=== PATIENT | female | born 1980 | race Caucasian/White ===

== ENCOUNTER 2022-08-13 08:43 | Emergency (ER) | payer BC ==
--- OUTSIDE RECORDS SUMMARY | 2022-08-13 08:47 | XMS REPORT | Continuity of Care Document ---
:1980 Author Organization [facility] t Address [address] [place] [address] [place] [id number] Care Team Providers Name Role Phone Ruth Chow Primary Care Physician RUTH CHAPIN Attending Clinician Unavailable Ruth Chow Attending Clinician Doctor Unassigned, [place] Attending Clinician Unavailable SHIMON_Magdalene Attending Clinician Unavailable BRAVO_Cherelle Attending Clinician Unavailable Dimitri Gar MD Attending Clinician SAMY PONCE Attending Clinician Unavailable Provider, [facility] Attending Clinician Unavailable Samy Ponce PA-C Attending Clinician BRUNA WHYTE Attending Clinician Unavailable Bruna Mann Attending Clinician Unknown, Attending Attending Clinician Unavailable Maura Burns Attending Clinician MAURA MCKINNON Attending Clinician Unavailable Suze Marin RN Attending Clinician Unavailable Nurse, [facility] Attending Clinician Unavailable Provider, [facility] Attending Clinician Unavailable DIMITRI GAR Attending Clinician Unavailable GARY QUINTANA Attending Clinician Unavailable BLAIR FOLEY Attending Clinician Unavailable [email or web address] Admitting Clinician Unavailable [email or web address] Admitting Clinician Unavailable Payers Payer Name Policy Type Policy Number Effective Date Expiration Date S iveth [employer] [place] [id number] 2020 00:00:00 [place] [id number] 2020 00:00:00 Problems Condition Condition Condition Status Onset Resolution Last Treating Co mments Source Name Details Category Date Date Treatment Clinician Date Atopic Atopic Disease Active 2019-03 Univers dermatitis dermatitis 0-11 it y of 00:00: [place] 00 Medical Branch Tobacco Tobacco Problem Active [facility] user User 10-13 Medical 00:00: 00 Deliveries Deliveries Problem Active [facility] by by 10-13 Medical 00:00: 00 History of History of Problem Active [facility] endometrio Endometrio 10-13 Me dical sis sis 00:00: 00 Microscopi Microscopi Disease Active U nivers c c 6-20 [place] of [place] [facility] Tubal Tubal Disease Active Univers ligation ligation 5-26 ity of status status 00:00: [place] [facility] Previous Previous Disease Active Unive rs 5-24 ity of section section 00:00: [place] 00 [facility] Branch Hemochroma Hemochroma Disease Active Overview : Univers tosis tosis Formattin ity of carrier carrier g of this [place] note Medical might be Branch different from the original. 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 ity of [facility] Varicose Varicose Disease Active Unive rs veins of veins of [place]y of both [place] extremitie extremitie Me dical s s Branch Allergies, Adverse Reactions, Alerts Allergy Allergy Status Severity Reaction(s) Onset Inactive Treating Comm ents Source Name Type Date Date Clinician No Known DA Active [facility] [place] NO KNOWN Drug Active Univers ALLERGIE Class ity of S [facility] Social History Social Habit Start Date Stop Date Quantity Comments Source History [facility] University o f Alcohol Frequency [place] [facility] History [facility] o f Alcohol Std Drinks [facility] History [facility] o f Alcohol Binge [facility] Branch Alcohol intake 2022-03-29 2022-03-29 Ex-drinker University of 00:00:00 00:00:00 (finding) [facility] Exposure to 2022-03-16 2022-03-26 Not sure University of SARS-CoV-2 (event) 00:00:00 15:03:00 [facility] Cigarettes smoked 2022-03-10 2022-03-10 Univers ity of current (pack per 00:00:00 00:00:00 [facility] ed) - Reported Branch Cigarette 2022-03-10 2022-03-10 University of pack-years 00:00:00 00:00:00 [facility] Tobacco use and 2022-03-10 2022-03-10 Smokeless Universit y of exposure 00:00:00 00:00:00 tobacco non-user [facility] [place] [facility] Tobacco Comment 2022-03-10 2022-03-10 vapes Universit y of 00:00:00 00:00:00 [facility] History of tobacco 2018-12-21 Cigarette Smoker University of use 00:00:00 [facility] Alcohol Comment 2017-06-21 2017-06-21 3 times per Universi ty of 00:00:00 00:00:00 month [facility] Sex Ass[birth year] At [birth year] Universit y of 00:00:00 00:00:00 [facility] Smoking Status Start Date Stop Date Source Ex-smoker 2022-03-10 00:00:00 2022-03-10 00:00:00 Universi ty of [facility] Medications Ordered Filled Start Stop Current Ordering Indication Dosage Frequency Signature Comments Components Source Medication Medication Date Date Medication? Clinician (SIG) Name Name vortioxetin Yes Trintellix Univers e 1-13 10 mg ity of (TR[place] 15:09: tablet [place] 10 mg Tab 52 Medical Branch vortioxetin Yes Trintellix Univers e 1-13 10 mg ity of (TR[place] 15:09: tablet [place] 10 mg Tab 52 [facility] Branch azithromyci Yes [id number] Take 500 Univers n 250 mg 1-13 mg PO day ity of tablet 00:00: 1, then [place] 00 250 mg PO Medical days 2 to Branch 5 azithromyci 3-0 Yes [id number] Take 500 Univers n 250 mg 1-13 mg PO day ity of tablet 00:00: 1, then [place] 00 250 mg PO Medical days 2 to Branch 5 benzonatate 2021-03 Yes [id number] 100mg Take 1 Univers (TESSALON 2-28 capsule by ity of PERLES) 100 00:00: mouth [place] mg capsule 00 every 8 Medica l (eight) Branch hours as needed for Cough. albuterol 2021-03 Yes [id number] 2{puff} Inhale 2 Univers 90 2-28 Puffs ity of mcg/actuati 00:00: every 6 Andrey as on inhaler 00 (six) Medical hours as Branch needed for Wheezing. methylPREDN 2021-03 Yes [id number] Take by Univers ISolone 2-28 mouth ity of (MEDROL, 00:00: SEE-INSTRU [place] as DORETHA,) 4 mg 00 CTIONS. Medica l tablets follow Branch package directions benzonatate 2021-03 Yes [id number] 100mg Take 1 Univers (TESSALON 2-28 capsule by ity of PERLES) 100 00:00: mouth [place] mg capsule 00 every 8 Medica l (eight) Branch hours as needed for Cough. albuterol 2021-03 Yes [id number] 2{puff} Inhale 2 Univers 90 2-28 Puffs ity of mcg/actuati 00:00: every 6 Andrey as on inhaler 00 (six) Medical hours as Branch needed for Wheezing. methylPREDN 2021-03 Yes [id number] Take by Univers ISolone 2-28 mouth ity of (MEDROL, 00:00: SEE-INSTRU [place] DORETHA,) 4 mg 00 CTIONS. Medica l tablets follow Branch package directions benzonatate 2021-03 Yes [id number] 100mg Take 1 Univers (TESSALON 2-28 capsule by ity of PERLES) 100 00:00: mouth [place] mg capsule 00 every 8 Medica l (eight) Branch hours as needed for Cough. albuterol 2021-03 Yes [id number] 2{puff} Inhale 2 Univers 90 2-28 Puffs ity of mcg/actuati 00:00: every 6 [place] as on inhaler 00 (six) Medical hours as Branch needed for Wheezing. methylPREDN 2021-03 Yes [id number] Take by Univers ISolone 2-28 mouth ity of (MEDROL, 00:00: SEE-INSTRU [place] DORETHA,) 4 mg 00 CTIONS. Medica l tablets follow Branch package directions benzonatate 2021-03 Yes [id number] 100mg Take 1 Univers (TESSALON 2-28 capsule by ity of PERLES) 100 00:00: mouth [place] mg capsule 00 every 8 Medica l (eight) Branch hours as needed for Cough. albuterol 2021-03 Yes [id number] 2{puff} Inhale 2 Univers 90 2-28 Puffs ity of mcg/actuati 00:00: every 6 [place] as on inhaler 00 (six) Medical hours as Branch needed for Wheezing. methylPREDN 2021-03 Yes [id number] Take by Univers ISolone 2-28 mouth ity of (MEDROL, 00:00: SEE-INSTRU [place] DORETHA,) 4 mg 00 CTIONS. Medica l tablets follow Branch package directions benzonatate 2021-03 Yes [id number] 100mg Take 1 Univers (TESSALON 2-28 capsule by ity of PERLES) 100 00:00: mouth [place] mg capsule 00 every 8 Medica l (eight) Branch hours as needed for Cough. albuterol 2021-03 Yes [id number] 2{puff} Inhale 2 Univers 90 2-28 Puffs ity of mcg/actuati 00:00: every 6 [place] as on inhaler 00 (six) Medical hours as Branch needed for Wheezing. methylPREDN 2021-03 Yes [id number] Take by Univers ISolone 2-28 mouth ity of (MEDROL, 00:00: SEE-INSTRU [place] DORETHA,) 4 mg 00 CTIONS. Medica l tablets follow Branch package directions SERTraline 2021-03 Yes Univers 100 mg 2-27 ity of tablet 00:00: [place] 00 Medical Branch varenicline 2021-03 Yes 10mg Take 10 mg Univers 0.5 mg 2-27 by mouth. ity of (11)- 1 mg 00:00: [place] (42) tablet 00 Medical Branch SERTraline 2021-03 Yes Univers 100 mg 2-27 ity of tablet 00:00: [place] 00 Medical Branch varenicline 2021-03 Yes 10mg Take 10 mg Univers 0.5 mg 2-27 by mouth. ity of (11)- 1 mg 00:00: [place] (42) tablet 00 Medical Branch diazePAM 5 2021-03 Yes Univers mg tablet 2-06 ity of 00:00: [place] 00 Medical Branch diazePAM 5 2021-03 Yes Univers mg tablet 2-06 ity of 00:00: [place] 00 Medical Branch tretinoin 2021-03 Yes Univers 0.05 % 1-22 ity of cream 00:00: [place] [facility] tretinoin 2021-03 Yes Univers 0.05 % 1-22 ity of cream 00:00: [place] [facility] triamcinolo 2020-03- No [id number] 40mg [facility] 04-15 ity of acetonide 18:45: 17:41 [place] (KENALOG) 00 :00 Medical injection Branch 40 mg triamcinolo 2020-03- No [id number] 40mg 40 mg, [facility] 04-15 Intramuscu ity of acetonide 18:45: 17:41 [place], ONCE, [place] (KENALOG) 00 :00 1 dose, On Medi oly injection Alondra Branch 40 mg 02/12/21 at 1245, Routine triamcinolo 2020-03 Yes Apply to [facility] 04-15 area(s) 2 ity of acetonide 00:00: (two) [place] 0.1 % cream 00 times Medical daily. Branch methylPREDN 2020-03 Yes Take by [facility] 04-15 mouth ity of (MEDROL, 00:00: SEE-INSTRU [place] DORETHA,) 4 mg 00 CTIONS. Medica l tablets follow Branch package directions triamcinolo 2020-03 Yes Apply to [facility] 04-15 area(s) 2 ity of acetonide 00:00: (two) [place] 0.1 % cream 00 times Medical daily. Branch methylPREDN 2020-03 Yes Take by [facility] 04-15 mouth ity of (MEDROL, 00:00: SEE-INSTRU [place] DORETHA,) 4 mg 00 CTIONS. Medica l tablets follow Branch package directions triamcinolo 2020-03 Yes Apply to [facility] area(s) 2 ity of acetonide 00:00: (two) [place] 0.1 % cream 00 times Medical daily. Branch methylPREDN 2020-03 Yes Take by [facility] 04-15 mouth ity of (MEDROL, 00:00: SEE-INSTRU [place] DORETHA,) 4 mg 00 CTIONS. Medica l tablets follow Branch package directions triamcinolo 2020-03 Yes Apply to [facility] area(s) 2 ity of acetonide 00:00: (two) [place] 0.1 % cream 00 times Medical daily. Branch methylPREDN 2020-03 Yes Take by [facility] 04-15 mouth ity of (MEDROL, 00:00: SEE-INSTRU [place] DORETHA,) 4 mg 00 CTIONS. Medica l tablets follow Branch package directions triamcinolo 2020-03 Yes Apply to [place] [address] area(s) 2 ity of acetonide 00:00: (two) [place] 0.1 % cream 00 times Medical daily. Branch triamcinolo 2020-03 Yes Apply to [facility] area(s) 2 ity of acetonide 00:00: (two) [place] 0.1 % cream 00 times Medical daily. Branch triamcinolo 2020-03 Yes Apply to [place] [address] area(s) 2 ity of acetonide 00:00: (two) [place] 0.1 % cream 00 times Medical daily. Branch triamcinolo 2020-03 Yes Apply to [place] [address] area(s) 2 ity of acetonide 00:00: (two) [place] 0.1 % cream 00 times Medical daily. Branch triamcinolo 2020-03 Yes Apply to [place] [address] area(s) 2 ity of acetonide 00:00: (two) [place] 0.1 % cream 00 times Medical daily. Branch methylPREDN 2020-03- No Take by [facility] 04-15 12-28 mouth ity of (MEDROL, 00:00: 00:00 [place]IN[place] DORETHA,) 4 mg 00 :00 CTIONS. Medica l tablets follow Branch package directions methylPREDN 2020-03- No [id number] Take by Univers ISolone 04-15 12-28 mouth ity of (MEDROL, 00:00: 00:00 [place]INSTRU [place] DORETHA,) 4 mg 00 :00 CTIONS. Medica l tablets follow Branch package directions triamcinolo 2020-03- No [id number] 40mg Univers ne 0-12 10-12 ity of acetonide 23:00: 21:57 [place] (KENALOG) 00 :00 Medical injection Branch 40 mg triamcinolo 2020-03- No [id number] 40mg 40 mg, Univers ne 0-12 10-12 Intramuscu ity of acetonide 23:00: 21:57 [place], ONCE, [place] (KENALOG) 00 :00 1 dose, On Medi oly injection Tue Branch 40 mg 12/23/20 at 1800, Routine triamcinolo 2020-03- No [id number] 40mg Univers ne 0-12 10-12 ity of acetonide 23:00: 21:57 [place] (KENALOG) 00 :00 Medical injection Branch 40 mg triamcinolo 2020-03- No [id number] 40mg 40 mg, Univers ne 0-12 10-12 Intramuscu ity of acetonide 23:00: 21:57 [place], ONCE, [place] (KENALOG) 00 :00 1 dose, On Medi oly injection Tue Branch 40 mg 12/23/20 at 1800, Routine ranitidine 2020-03- No [id number] 150mg Take 1 Univers (ZANTAC) 0-02 20-27 tablet by ity o f 150 mg 00:00: 04:59 mouth 2 [place] tablet 00 :00 (two) Medical times Branch daily for 14 days. ranitidine 2020-03- No [id number] 150mg Take 1 Univers (ZANTAC) 0-12 10-27 tablet by ity o f 150 mg 00:00: 04:59 mouth 2 [place] tablet 00 :00 (two) Medical times Branch daily for 14 days. ranitidine 2020-03- No [id number] 150mg Take 1 Univers (ZANTAC) 0-12 -27 tablet by ity o f 150 mg 00:00: 04:59 mouth 2 [place] tablet 00 :00 (two) Medical times Branch daily for 14 days. hydrOXYzine 2020-03- No [id number] 50mg Take 1 Univers 50 mg 0-12 10-20 tablet by ity of tablet 00:00: 04:59 mouth 3 [place] 00 :00 (three) Medical times Branch daily as needed for Itching for up to 7 days. hydrOXYzine 2020-03- No [id number] 50mg Take 1 Univers 50 mg 0-12 10-20 tablet by ity of tablet 00:00: 04:59 mouth 3 [place] 00 :00 (three) Medical times Branch daily as needed for Itching for up to 7 days. hydrOXYzine 2020-03- No [id number] 50mg Take 1 Univers 50 mg 0-12 10-20 tablet by ity of tablet 00:00: 04:59 mouth 3 [place] 00 :00 (three) Medical times Branch daily as needed for Itching for up to 7 days. methylPREDN 2020-03- No [id number] Take by Univers ISolone 0-12 10-12 mouth ity of (MEDROL, 00:00: 00:00 [place]IN[place] DORETHA,) 4 mg 00 :00 CTIONS for Med ical tablets 6 days. Branch follow package directions methylPREDN 2020-03- No [id number] Take by Univers ISolone 0-12 10-12 mouth ity of (MEDROL, 00:00: 00:00 [place]INSTRU [place] DORETHA,) 4 mg 00 :00 CTIONS for Med ical tablets 6 days. Branch follow package directions FLUTICASONE 0 Yes [id number] SHAKE Univers PROPIONATE 5-09 LIQUID AND ity of 50 00:00: USE 2 [place] mcg/actuati 00 SPRAYS IN Med ical on nasal EACH Branch spray NOSTRIL DAILY FLUTICASONE 2020-0 Yes [id number] SHAKE Univers PROPIONATE 5-09 LIQUID AND ity of 50 00:00: USE 2 [place] mcg/actuati 00 SPRAYS IN Med ical on nasal EACH Branch spray NOSTRIL DAILY FLUTICASONE 2020-0 Yes [id number] SHAKE Univers PROPIONATE 5-09 LIQUID AND ity of 50 00:00: USE 2 [place] mcg/actuati 00 SPRAYS IN Med ical on nasal EACH Branch spray NOSTRIL DAILY FLUTICASONE Yes [id number] SHAKE Univers PROPIONATE 5-09 LIQUID AND ity of 50 00:00: USE 2 [place] mcg/actuati 00 SPRAYS IN Med ical on nasal EACH Branch spray NOSTRIL DAILY FLUTICASONE Yes [id number] SHAKE Univers PROPIONATE 5-09 LIQUID AND ity of 50 00:00: USE 2 [place] mcg/actuati 00 SPRAYS IN Med ical on nasal EACH Branch spray NOSTRIL DAILY FLUTICASONE Yes [id number] SHAKE Univers PROPIONATE 5-09 LIQUID AND ity of 50 00:00: USE 2 [place] mcg/actuati 00 SPRAYS IN Med ical on nasal EACH Branch spray NOSTRIL DAILY FLUTICASONE Yes [id number] SHAKE Univers PROPIONATE 5-09 LIQUID AND ity of 50 00:00: USE 2 [place] mcg/actuati 00 SPRAYS IN Med ical on nasal EACH Branch spray NOSTRIL DAILY FLUTICASONE Yes [id number] SHAKE Univers PROPIONATE 5-09 LIQUID AND ity of 50 00:00: USE 2 [place] mcg/actuati 00 SPRAYS IN Med ical on nasal EACH Branch spray NOSTRIL DAILY FLUTICASONE Yes [id number] SHAKE Univers PROPIONATE 5-09 LIQUID AND ity of 50 00:00: USE 2 [place] mcg/actuati 00 SPRAYS IN Med ical on nasal EACH Branch spray NOSTRIL DAILY FLUTICASONE Yes [id number] SHAKE Univers PROPIONATE 5-09 LIQUID AND ity of 50 00:00: USE 2 [place] mcg/actuati 00 SPRAYS IN Med ical on nasal EACH Branch spray NOSTRIL DAILY FLUTICASONE Yes [id number] SHAKE Univers PROPIONATE 5-09 LIQUID AND ity of 50 00:00: USE 2 [place] mcg/actuati 00 SPRAYS IN Med ical on nasal EACH Branch spray NOSTRIL DAILY FLUTICASONE Yes [id number] SHAKE Univers PROPIONATE 5-09 LIQUID AND ity of 50 00:00: USE 2 [place] mcg/actuati 00 SPRAYS IN Med ical on nasal EACH Branch spray NOSTRIL DAILY triamcinolo 2019-03 Yes [id number] Apply to Univers ne 0.5 % 0-02 area(s) 2 ity of cream 00:00: (two) [place] 00 times Medical daily. Branch triamcinolo 2020-1 Yes [id number] Apply to Univers ne 0.5 % 0-02 area(s) 2 ity of cream 00:00: (two) [place] 00 times Medical daily. Branch triamcinolo 2020-1 Yes [id number] Apply to Univers ne 0.5 % 0-02 area(s) 2 ity of cream 00:00: (two) [place] 00 times Medical daily. Branch triamcinolo 2020-1 Yes [id number] Apply to Univers ne 0.5 % 0-02 area(s) 2 ity of cream 00:00: (two) [place] 00 times Medical daily. Branch triamcinolo 2020-1 Yes [id number] Apply to Univers ne 0.5 % 0-02 area(s) 2 ity of cream 00:00: (two) [place] 00 times Medical daily. Branch triamcinolo 2020-1 Yes [id number] Apply to Univers ne 0.5 % 0-02 area(s) 2 ity of cream 00:00: (two) [place] 00 times Medical daily. Branch triamcinolo 2020-1 Yes [id number] Apply to Univers ne 0.5 % 0-02 area(s) 2 ity of cream 00:00: (two) [place] 00 times Medical daily. Branch triamcinolo 2020-1 Yes [id number] Apply to Univers ne 0.5 % 0-02 area(s) 2 ity of cream 00:00: (two) [place] 00 times Medical daily. Branch triamcinolo 2020-1 Yes [id number] Apply to Univers ne 0.5 % 0-02 area(s) 2 ity of cream 00:00: (two) [place] 00 times Medical daily. Branch triamcinolo 2020-1 Yes [id number] Apply to Univers ne 0.5 % 0-02 area(s) 2 ity of cream 00:00: (two) [place] 00 times Medical daily. Branch triamcinolo 2020-1 Yes [id number] Apply to Univers ne 0.5 % 0-02 area(s) 2 ity of cream 00:00: (two) [place] 00 times Medical daily. Branch triamcinolo 2020-1 Yes [id number] Apply to Univers ne 0.5 % 0-02 area(s) 2 ity of cream 00:00: (two) [place] 00 times Medical daily. Branch Mirena 20 Mirena 20 No Mirena 20 [facility] mcg/24 mcg/24 9-06 mcg/24 Medical hours (8 hours (8 00:00: hours (8 yrs) 52 mg yrs) 52 mg 00 yrs) 52 mg intrauterin intrauterin intrauteri e device e device ne device Take by Take by Take by intrauterin intrauterin intrauteri e route. e route. ne route. Mirena 20 Mirena 20 No Mirena 20 [facility] mcg/24 mcg/24 9-06 mcg/24 Medical hours (8 hours (8 00:00: hours (8 yrs) 52 mg yrs) 52 mg 00 yrs) 52 mg intrauterin intrauterin intrauteri e device e device ne device Take by Take by Take by intrauterin intrauterin intrauteri e route. e route. ne route. clindamycin clindamycin No clindamyci [facility] 1 % lotion 1 % lotion n 1 % Me dical APPLY APPLY lotion TOPICALLY TOPICALLY APPLY TO FACE TO FACE TOPICALLY EVERY DAY EVERY DAY TO FACE IN THE IN THE EVERY DAY MORNING MORNING IN THE MORNING cmpd wart cmpd wart No cmpd wart [facility] peel cream peel cream peel cream Medical grams APPLY grams APPLY grams NIGHTLY TO NIGHTLY TO APPLY WART AND WART AND NIGHTLY TO COVER WITH COVER WITH WART AND TAPE. WASH TAPE. WASH COVER WITH OFF IN THE OFF IN THE TAPE. WASH MORNING. MORNING. OFF IN THE MORNING. dextroamphe dextroamphe No dextroamph [facility] tamine-amph tamine-amph etamine-am Medical etamine 30 etamine 30 phetamine mg tablet mg tablet 30 mg tablet diazepam 5 diazepam 5 No diazepam 5 [facility] mg tablet mg tablet mg tablet Medical fluticasone fluticasone No fluticason [facility] propionate propionate e Med ical 50 50 propionate mcg/actuati mcg/actuati 50 on nasal on nasal mcg/actuat spray,suspe spray,suspe ion nasal nsion SHAKE nsion SHAKE spray,susp LIQUID AND LIQUID AND ension USE 2 USE 2 SHAKE SPRAYS IN SPRAYS IN LIQUID AND EACH EACH USE 2 NOSTRIL NOSTRIL SPRAYS IN DAILY DAILY EACH NOSTRIL DAILY meloxicam meloxicam No meloxicam [facility] 7.5 mg 7.5 mg 7.5 mg Medical tablet TAKE tablet TAKE tablet 1 TABLET BY 1 TABLET BY TAKE 1 MOUTH ONCE MOUTH ONCE TABLET BY DAILY DAILY MOUTH ONCE DAILY sertraline sertraline No sertraline [facility] 100 mg 100 mg 100 mg Medical tablet tablet tablet tretinoin tretinoin No tretinoin [facility] 0.05 % 0.05 % 0.05 % Medical topical topical topical cream APPLY cream APPLY cream PEA-SIZED PEA-SIZED APPLY AMOUNT TO AMOUNT TO PEA-SIZED FACE AT FACE AT AMOUNT TO NIGHTTIME NIGHTTIME FACE AT NIGHTTIME triamcinolo triamcinolo No triamcinol [facility] ne ne one Medical acetonide acetonide acetonide 0.1 % 0.1 % 0.1 % topical topical topical cream APPLY cream APPLY cream TOPICALLY TOPICALLY APPLY TO THE TO THE TOPICALLY AFFECTED AFFECTED TO THE AREA TWICE AREA TWICE AFFECTED DAILY DAILY AREA TWICE DAILY Trintellix Trintellix No Trintellix [facility] 10 mg 10 mg 10 mg Medical tablet tablet tablet Zithromax Zithromax No Zithromax [facility] Z-Doretha 250 Z-Doretha 250 Z-Doretha 250 Medical mg tablet mg tablet mg tablet TAKE 2 TAKE 2 TAKE 2 TABLETS TABLETS TABLETS (500 MG) BY (500 MG) BY (500 MG) ORAL ROUTE ORAL ROUTE BY ORAL ONCE DAILY ONCE DAILY ROUTE ONCE FOR 1 DAY FOR 1 DAY DAILY FOR THEN 1 THEN 1 1 DAY THEN TABLET (250 TABLET (250 1 TABLET MG) BY ORAL MG) BY ORAL (250 MG) ROUTE ONCE ROUTE ONCE BY ORAL DAILY FOR 4 DAILY FOR 4 ROUTE ONCE DAYS DAYS DAILY FOR 4 DAYS clindamycin clindamycin No clindamyci [facility] 1 % lotion 1 % lotion n 1 % Me dical APPLY APPLY lotion TOPICALLY TOPICALLY APPLY TO FACE TO FACE TOPICALLY EVERY DAY EVERY DAY TO FACE IN THE IN THE EVERY DAY MORNING MORNING IN THE MORNING cmpd wart cmpd wart No cmpd wart [facility] peel cream peel cream peel cream Medical grams APPLY grams APPLY grams NIGHTLY TO NIGHTLY TO APPLY WART AND WART AND NIGHTLY TO COVER WITH COVER WITH WART AND TAPE. WASH TAPE. WASH COVER WITH OFF IN THE OFF IN THE TAPE. WASH MORNING. MORNING. OFF IN THE MORNING. dextroamphe dextroamphe No dextroamph [facility] tamine-amph tamine-amph etamine-am Medical etamine 30 etamine 30 phetamine mg tablet mg tablet 30 mg tablet diazepam 5 diazepam 5 No diazepam 5 [facility] mg tablet mg tablet mg tablet Medical meloxicam meloxicam No meloxicam [facility] 7.5 mg 7.5 mg 7.5 mg Medical tablet TAKE tablet TAKE tablet 1 TABLET BY 1 TABLET BY TAKE 1 MOUTH ONCE MOUTH ONCE TABLET BY DAILY DAILY MOUTH ONCE DAILY sertraline sertraline No sertraline [facility] 100 mg 100 mg 100 mg Medical tablet tablet tablet tretinoin tretinoin No tretinoin [facility] 0.05 % 0.05 % 0.05 % Medical topical topical topical cream APPLY cream APPLY cream PEA-SIZED PEA-SIZED APPLY AMOUNT TO AMOUNT TO PEA-SIZED FACE AT FACE AT AMOUNT TO NIGHTTIME NIGHTTIME FACE AT NIGHTTIME triamcinolo triamcinolo No triamcinol [facility] ne ne one Medical acetonide acetonide acetonide 0.1 % 0.1 % 0.1 % topical topical topical cream APPLY cream APPLY cream TOPICALLY TOPICALLY APPLY TO THE TO THE TOPICALLY AFFECTED AFFECTED TO THE AREA TWICE AREA TWICE AFFECTED DAILY DAILY AREA TWICE DAILY Trintellix Trintellix No Trintellix [facility] 10 mg 10 mg 10 mg Medical tablet tablet tablet Immunizations Ordered Filled Immunization Date Status Comments [facility] e Immunization Name Name SARS-COV-2 COVID-19 2020-08-29 Completed Unive rsity of MODERNA VACCINE 00:00:00 [facility] SARS-COV-2 COVID-19 2020-08-29 Completed Unive rsity of MODERNA VACCINE 00:00:00 [facility] SARS-COV-2 COVID-19 2020-08-29 Completed Unive rsity of MODERNA VACCINE 00:00:00 [facility] SARS-COV-2 COVID-19 2020-08-29 Completed Unive rsity of MODERNA VACCINE 00:00:00 [facility] SARS-COV-2 COVID-19 2020-08-29 Completed Unive rsity of MODERNA VACCINE 00:00:00 [facility] SARS-COV-2 COVID-19 2020-08-29 Completed Unive rsity of MODERNA VACCINE 00:00:00 [place] Med ical Branch SARS-COV-2 COVID-19 2020-08-29 Completed Unive rsity of MODERNA 12+ YRS 00:00:00 [place] Med ical VACCINE Branch SARS-COV-2 COVID-19 2020-08-29 Completed Unive rsity of MODERNA 12+ YRS 00:00:00 [place] Med ical VACCINE Branch SARS-COV-2 COVID-19 2020-08-29 Completed Unive rsity of MODERNA 12+ YRS 00:00:00 [place] [facility] VACCINE [facility] SARS-COV-2 COVID-19 2020-08-29 Completed Unive rsity of MODERNA 12+ YRS 00:00:00 [place] [facility] VACCINE [facility] SARS-COV-2 COVID-19 2020-08-29 Completed Unive rsity of MODERNA 12+ YRS 00:00:00 [place] [facility] VACCINE [facility] SARS-COV-2 COVID-19 2020-08-29 Completed Unive rsity of MODERNA 12+ YRS 00:00:00 [place] [facility] VACCINE [facility] SARS-COV-2 COVID-19 2020-07-29 Completed Unive rsity of MODERNA VACCINE 00:00:00 [facility] ical Branch SARS-COV-2 COVID-19 2020-07-29 Completed Unive rsity of MODERNA VACCINE 00:00:00 [facility] ical Branch SARS-COV-2 COVID-19 2020-07-29 Completed Unive rsity of MODERNA VACCINE 00:00:00 [facility] ical Branch SARS-COV-2 COVID-19 2020-07-29 Completed Unive rsity of MODERNA VACCINE 00:00:00 [facility] ical Branch SARS-COV-2 COVID-19 2020-07-29 Completed Unive rsity of MODERNA VACCINE 00:00:00 [facility] ical Branch SARS-COV-2 COVID-19 2020-07-29 Completed Unive rsity of MODERNA VACCINE 00:00:00 [place] [facility] SARS-COV-2 COVID-19 2020-07-29 Completed Unive rsity of MODERNA 12+ YRS 00:00:00 [place] [facility] VACCINE [facility] SARS-COV-2 COVID-19 2020-07-29 Completed Unive rsity of MODERNA 12+ YRS 00:00:00 [place] [facility] VACCINE [facility] SARS-COV-2 COVID-19 2020-07-29 Completed Unive rsity of MODERNA 12+ YRS 00:00:00 [facility] ical VACCINE Branch SARS-COV-2 COVID-19 2020-07-29 Completed Unive rsity of MODERNA 12+ YRS 00:00:00 [facility] ical VACCINE Branch SARS-COV-2 COVID-19 2020-07-29 Completed Unive rsity of MODERNA 12+ YRS 00:00:00 [facility] ical VACCINE Branch SARS-COV-2 COVID-19 2020-07-29 Completed Unive rsity of MODERNA 12+ YRS 00:00:00 [facility] V[facility] Branch Influenza Virus 2019-01-25 Completed Universit y of Vaccine Quad .5 mL 00:00:00 [place] [facility] IM 6+ MO Branch Influenza Virus 2019-01-25 Completed Universit y of Vaccine [place] .5 mL 00:00:00 [place] [facility] IM 6+ MO Branch Influenza Virus 2019-01-25 Completed Universit y of Vacc[place] .5 mL 00:00:00 [place] [facility] IM 6+ MO Branch Influenza Virus 2019-01-25 Completed Universit y of Vaccine [place] .5 mL 00:00:00 [place] [facility] IM 6+ MO Branch Influenza Virus 2019-01-25 Completed Universit y of Vaccine [place] .5 mL 00:00:00 [place] [facility] IM 6+ MO Branch Influenza Virus 2019-01-25 Completed Universit y of Vaccine [place] .5 mL 00:00:00 [place] [facility] IM 6+ MO Branch Influenza Virus 2019-01-25 Completed Universit y of Vaccine [place] .5 mL 00:00:00 [place] [facility] IM 6+ MO Branch Influenza Virus 2019-01-25 Completed Universit y of Vaccine [place] .5 mL 00:00:00 [place] [facility] IM 6+ MO Branch Influenza Virus 2019-01-25 Completed Universit y of Vaccine [place] .5 mL 00:00:00 [place] [facility] IM 6+ MO Branch Influenza Virus 2019-01-25 Completed Universit y of Vaccine Quad .5 mL 00:00:00 [place] [facility] IM 6+ MO Branch Influenza Virus 2019-01-25 Completed Universit y of Vaccine Quad .5 mL 00:00:00 [place] [facility] IM 6+ MO Branch Influenza Virus 2019-01-25 Completed Universit y of Vaccine Quad .5 mL 00:00:00 [place] [facility] IM 6+ MO Branch TDAP 2015-07-21 Completed University of 00:00:00 [facility] Branch TDAP 2015-07-21 Completed University of 00:00:00 [facility] Branch TDAP 2015-07-21 Completed University of 00:00:00 [facility] Branch TDAP 2015-07-21 Completed University of 00:00:00 [facility] Branch TDAP 2015-07-21 Completed University of 00:00:00 [facility] Branch TDAP 2015-07-21 Completed University of 00:00:00 [facility] Branch TDAP 2015-07-21 Completed University of 00:00:00 [facility] Branch TDAP 2015-07-21 Completed University of 00:00:00 [facility] Branch TDAP 2015-07-21 Completed University of 00:00:00 [facility] Branch TDAP 2015-07-21 Completed University of 00:00:00 [facility] Branch TDAP 2015-07-21 Completed [facility] University [facility] 00:00:00 [facility] Vital Signs Vital Name Observation Time Observation Value Comments Source Systolic blood 2022-03-26 21:08:00 129 mm[Hg] Univer sity of pressure [facility] Diastolic blood 2022-03-26 21:08:00 75 mm[Hg] Unive rsity of [facility] Heart rate 2022-03-26 21:08:00 92 /min [facility] Body height 2022-03-26 21:08:00 167.6 cm [facility] Body weight 2022-03-26 21:08:00 72.394 kg [facility] BMI 2022-03-26 21:08:00 25.76 kg/m2 [facility] Oxygen saturation in 2022-03-26 21:08:00 100 /min University Arterial blood by [facility] Pulse oximetry Branch Systolic blood 2022-03-10 17:39:00 127 mm[Hg] Univer sity of pressure [facility] Diastolic blood 2022-03-10 17:39:00 82 mm[Hg] Unive rsity of pressure [facility] Heart rate 2022-03-10 17:39:00 98 /min [facility] Body temperature 2022-03-10 17:39:00 36.78 [facility] Body height 2022-03-10 17:39:00 167.6 cm Universi ty of [facility] Body weight 2022-03-10 17:39:00 70.308 kg Universi ty of [facility] BMI 2022-03-10 17:39:00 25.02 kg/m2 Universi ty [facility] Oxygen saturation in 2022-03-10 17:39:00 100 /min [facility] Arterial blood by [facility] Pulse oximetry Branch BP Diastolic 2022-02-18 00:00:00 76 mm[Hg] Kandy Rice edical Height 2022-02-18 00:00:00 67 [in_i] Kandy aguilar BMI (Body Mass 2022-02-18 00:00:00 25.4 kg/m2 [facility] Index) BP Systolic 2022-02-18 00:00:00 114 mm[Hg] Kandy aguilar Body Weight 2022-02-18 00:00:00 162 [lb_av] K[facility] Rice edical BP Diastolic 2022-02-15 00:00:00 70 mm[Hg] K[facility] Rice edical Height 2022-02-15 00:00:00 67 [in_i] Kandy aguilar BMI (Body Mass 2022-02-15 00:00:00 25.1 kg/m2 [facility] Index) BP Systolic 2022-02-15 00:00:00 118 mm[Hg] Kandy aguilar Body Weight 2022-02-15 00:00:00 160 [lb_av] Kandy aguilar Systolic blood 2021-03-09 01:28:00 113 mm[Hg] Univer sity of pressure [facility] Diastolic blood 2021-03-09 01:28:00 79 mm[Hg] Unive rsity of pressure [facility] Heart rate 2021-03-09 01:19:00 62 /min Universi ty [facility] Body temperature 2021-03-09 01:19:00 36.67 Lady [facility] Respiratory rate 2021-03-09 01:19:00 18 /min [facility] Body height 2021-03-09 01:19:00 167.6 cm Universi ty [facility] Body weight 2021-03-09 01:19:00 69.854 kg Universi ty [facility] BMI 2021-03-09 01:19:00 24.86 kg/m2 [facility] Oxygen saturation in 2021-03-09 01:19:00 100 /min University of Arterial blood by [facility] Pulse oximetry Branch Systolic blood 2021-02-12 17:10:00 120 mm[Hg] Univer sity of pressure [facility] Diastolic blood 2021-02-12 17:10:00 77 mm[Hg] Unive rsity of pressure [facility] Heart rate 2021-02-12 17:10:00 68 /min [facility]i [facility] Body temperature 2021-02-12 17:10:00 36.33 Lady Univ ersity [facility] Respiratory rate 2021-02-12 17:10:00 18 /min Univ ersity [facility] Body height 2021-02-12 17:10:00 167.6 cm [facility] Body weight 2021-02-12 17:10:00 68.04 kg [facility]i ty [facility] [place] [facility] BMI 2021-02-12 17:10:00 24.21 kg/m2 [facility] Oxygen saturation in 2021-02-12 17:10:00 99 /min University of Arterial blood by [facility] Pulse oximetry Branch Systolic blood 2020-12-23 21:05:00 121 mm[Hg] Univer sity of pressure [facility] Diastolic blood 2020-12-23 21:05:00 76 mm[Hg] Unive rsity of pressure [facility] Heart rate 2020-12-23 21:05:00 67 /min [facility]i ty [facility] Body temperature 2020-12-23 21:05:00 37.17 Lady Univ ers[facility] Body height 2020-12-23 21:05:00 167.6 cm [facility] Body weight 2020-12-23 21:05:00 71.668 kg [facility] BMI 2020-12-23 21:05:00 25.50 kg/m2 [facility] Oxygen saturation in 2020-12-23 21:05:00 100 /min University of Arterial blood by [facility] Pulse oximetry Branch Procedures Procedure Date / Time Performing Clinician Source Performed POCT TEST 2022-03-10 18:07:00 Ruth Chapin [facility] CONSENT/REFUSAL FOR 2022-03-10 17:37:06 Doctor Unassigned, [facility] DIAGNOSIS AND TREATMENT [place] [facility] MAMMO, screening, 2022-02-15 00:00:00 [facility] digital, bilateral US, pelvis, 2022-02-15 00:00:00 [facility] transabdominal + transvaginal POCT MOLECULAR FLU 2021-03-09 01:38:00 Samy Ponce [facility] Laparoscopic 2018-11-17 00:00:00 [facility] Salpingo-oophorectomy Caesarean Section 2015-09-11 00:00:00 [facility] Caesarean Section 2003-03-26 00:00:00 [facility] Breast Surgery - [facility] Augmentation Laparoscopy [facility] Medical Plan of Care Planned Activity Planned Date Details Comments Source Diagnostic Test 2022-02-15 Ox-eye rohan IgE Ab [facility] Pending 00:00:00 [Units/volume] in Serum [code = 6196-0] Diagnostic Test 2022-02-15 Indirect antiglobulin Rufina via Medical Pending 00:00:00 test.IgG specific reagent [Presence] in Serum or Plasma [code = 1005-8] Diagnostic Test 2022-02-15 unlisted lab [code = [facility] Pending 00:00:00 unlisted lab] Diagnostic Test 2022-02-15 Clostridium tetani Ab Rufina via Medical Pending 00:00:00 [Presence] in Serum [code = 5093-0] Future Appointment 2023-02-15 Sherron Jack [facility] Medical 00:00:00 [address]; [address], [place] [address] Instructions [facility] Medical Encounters Start End Encounter Admission Attending Care Care Encounter Source Date/Time Date/Time Type Type Clinicians Facility Department ID 2022-03-26 2022-03-26 Outpatient R PITA [facility] [id number] Univers 15:00:00 15:39:10 RUTH bryant [facility] 2022-03-26 2022-03-26 [facility] 1.2.840.114 [id number] Univers 15:00:00 15:39:10 Visit Ruth Altamirano HEALTH 350.1.13.10 i ty of [facility] 4.2.7.2.686 Andrey as SATHYA?BLEA [id number] [address] OFFICE [facility] 2022-03-10 2022-03-10 [facility] [id number] Univers 11:15:00 23:59:00 RUTH ity of [facility] 2022-03-10 2022-03-10 [facility] 1.2.840.114 [id number] Univers 11:30:00 12:11:03 Visit Ruth Altamirano HEALTH 350.1.13.10 i ty of [place] 4.2.7.2.686 Andrey as SATHYA?BLEA [id number] [address] OFFICE [facility] 2022-03-10 2022-03-10 Orders Doctor CLOVIS 1.2.840.114 [id number] Univers 00:00:00 00:00:00 Only Unassigned, BUCKY 350.1.13.10 ity of [place] [facility] [id number] Andrey as [id number] [address] 2022-03-10 2022-03-10 Refill [facility] 1.2.840.114 [id number] Univers 00:00:00 00:00:00 Ruth A HEALTH 350.1.13.10 i ty of [facility] 4.2.7.2.686 Andrey as SATHYA?BLEA [id number] [address] OFFICE [facility] 2022-02-18 2022-02-18 Outpatient GC_SWHAOMC_ PRIV PRIV [id number] [facility] 00:00:00 00:00:00 Magdalene [id number] [facility] 2022-02-18 2022-02-18 Outpatient GC_SWHAOMC_ PRIV PRIV [id number] [facility] 00:00:00 00:00:00 Magdalene [id number] [facility] 2022-02-18 2022-02-18 Sherron L [facility] 208 [facility] 00:00:00 00:00:00 [facility] dical ter: [address] GC_[facility]_ [facility], Office* [address], [place] [address] , Ph. 2022-02-16 2022-02-16 Outpatient GC_SWHATBIC PRIV PRIV [id number] [facility] 00:00:00 00:00:00 _Cherelle [id number] [facility] 2022-02-15 2022-02-15 Outpatient GC_SWHAOMC_ PRIV PRIV [id number] [facility] 00:00:00 00:00:00 Magdalene [id number] [facility] 2022-02-15 2022-02-15 Sherron L [facility] 205 [facility] 00:00:00 00:00:00 [facility] dical ter: [address] GC_[facility], Office* [address], [place] [address] , Ph. 2022-02-12 2022-02-12 Outpatient GC_SWHAOMC_ PRIV PRIV [id number] [facility] 00:00:00 00:00:00 Magdalene [id number] [facility] 2021-05-05 2021-05-05 [facility] 1.2.840.114 [id number] Univers 00:00:00 00:00:00 Wondiful A [facility].1.13.10 [facility] 4.2.7.2.686 Andrey as PROFESSIO [id number] Md dical [address] OFFICE BUILDING ONE 2021-03-08 2021-03-08 Outpatient Aramis PONCE [facility] [id number] Univers 18:20:00 20:17:41 SAMY [facility] 2021-03-08 2021-03-08 Urgent Provider, Ruslan [facility] 1.2.840.114 [id number] Univers 18:20:00 18:40:00 Samy Lyman [facility] 350.1.13.10 [facility] 4.2.7.2.686 Andrey as SATHYA?BLEA [phone] [facility] [address] MEDICAL OFFICE BUILDING 2021-02-12 2021-02-12 Outpatient R ISABELL [facility] [id number] Univers 11:00:00 11:55:21 BRUNA ity of [facility] 2021-02-12 2021-02-12 Urgent Bruna Whyte [facility] 1.2.840.114 [id number] Univers 10:59:39 11:19:39 Care Unknown, Attending HEALTH 350.1.13.10 ity of [place] 4.2.7.2.686 Andrey as SATHYA?BLEA [phone] [address] MEDICAL OFFICE BUILDING 2021-01-26 2021-01-26 Outpatient GC_SWOM_ PRIV PRIV [id number] [facility] 00:00:00 00:00:00 Magdalene [id number] [facility] 2020-12-25 2020-12-25 Telephone Cong [facility] 1.2.840.114 [id number] Univers 00:00:00 00:00:00 Wondiful A Health 350.1.13.10 ity of [place] 4.2.7.2.686 Andrey as Sathya?Blea [id number] [address] Medical Office [facility] 2020-12-23 2020-12-23 Office Ariane [facility] 1.2.840.114 [id number] Univers 15:56:37 16:56:08 Visit [facility] 350.1.13.10 it y of [place] 4.2.7.2.686 Andrey as Sathya?Blea [id number] [address] Medical Office Building 2020-12-23 2020-12-23 Outpatient R ARIANE [facility] [id number] Univers 16:00:00 16:00:00 MAURA bryant [facility] 2020-12-23 2020-12-23 Orders Doctor BRANNON 1.2.840.114 [id number] Univers 00:00:00 00:00:00 Only Unassigned, BUCKY 350.1.13.10 ity of [place] [facility] 4.2.7.2.686 Andrey as [id number] [address] 2020-10-24 2020-10-24 Telephone Marin Shearn 1.2.840.114 [id number] Univers 00:00:00 00:00:00 , Suze [place]in [place] 350.1.13.10 ity [place]2.7.2.686 [place] [id number] [facility] [address] 2020-10-24 2020-10-24 Telephone Marin Shearn 1.2.840.114 [id number] Univers 00:00:00 00:00:00 , Suze [place] 350.1.13.10 ity [place]2.7.2.686 [place] [id number] [address] 2020-07-19 2020-07-19 Cheng Gar [facility] 1.2.840.114 [id number] Univers 00:00:00 00:00:00 Wondiful A Health 350.1.13.10 ity of [place] 4.2.7.2.686 Andrey as Professio [phone] [facility] [address] Office [facility] One 2020-06-03 2020-06-03 Telephone Nurse, Ruslan [facility] 1.2.840.114 [id number] Univers 00:00:00 00:00:00 Urgent Care Health 350.1.13.10 ity of Surgical 4.2.7.2.686 Andrey as Specialti [phone] [facility] [address] [facility] 2020-05-27 2020-05-27 Urgent Provider, Ruslan [facility] 1.2.840.114 [id number] Univers 18:34:45 18:54:45 Maura [facility] 350.1.13.10 ity of [place] 4.2.7.2.686 Andrey as Professio [id number] [address] Office Building One 2020-05-27 2020-05-27 Outpatient Aramis MCKINNON [facility] [id number] Univers 18:40:00 18:40:00 MAURA ity of [facility] 2020-04-22 2020-04-22 Outpatient Aramis MCKINNON [facility] [id number] Univers 14:40:00 14:40:00 MAURA ity of [facility] 2020-01-10 2020-01-10 Telephone [facility] 1.2.840.114 [id number] Univers 00:00:00 00:00:00 Wondiful A Health 350.1.13.10 ity of [place] 4.2.7.2.686 Andrey as Professio [id number] [address] Office [facility] 2020-01-10 2020-01-10 Telephone [facility] 1.2.840.114 [id number] 00:00:00 00:00:00 Wondiful A Health 350.1.13.10 [place] 4.2.7.2.686 Professio [phone] [place] [address] Office [facility] One 2019-12-14 2019-12-14 Office [facility] 1.2.840.114 [id number] Univers 14:35:00 15:22:57 Visit Wondiful A Health 350.1.13.10 ity of [place] 4.2.7.2.686 Andrey as Professio [id number] [address] Office [facility] One 2019-12-14 2019-12-14 [facility] 1.2.840.114 [id number] 14:35:00 15:22:57 Visit Wondiful A Health 350.1.13.10 [place] 4.2.7.2.686 Professio [phone] [place] [address] Office [facility] 2019-12-14 2019-12-14 Outpatient R CONG [facility] [id number] Univers 15:00:00 15:00:00 WONDIFUL ity o f [facility] 2019-12-10 2019-12-10 [facility] 1.2.840.114 [id number] Univers 00:00:00 00:00:00 Wondiful A Health 350.1.13.10 ity of [place] 4.2.7.2.686 Andrey as Professio [phone] [address] Office [facility] One 2019-12-04 2019-12-04 Office [facility] 1.2.840.114 [id number] Univers 11:48:02 12:25:07 Visit Wondiful A Health 350.1.13.10 ity of [place] 4.2.7.2.686 Andrey as Professio [phone] Md dic[address] Office Building One 2019-12-04 2019-12-04 Outpatient R CONG [facility] [id number] Univers 11:45:00 11:45:00 WONDIFUL ity o f [facility] 2019-10-18 2019-10-18 Outpatient COH COH PDPFEIM SYH COH 00:00:00 00:00:00 [id number] 2019-09-19 2019-09-19 Outpatient R HUMAN, [facility] [id number] Univers 16:00:00 16:00:00 GARY ity [facility] 2019-09-18 2019-09-18 Telephone [facility] 1.2.840.114 [id number] Univers 00:00:00 00:00:00 Wondiful A Health 350.1.13.10 ity of [place] 4.2.7.2.686 Andrey as Professio [phone] [address] Office [facility] One 2019-07-26 2019-07-26 Outpatient FOLEY, [facility] [id number] [address] [place] [address] 00:00:00 00:00:00 BLAIR Arshad i 2019-04-23 2019-04-23 Office [facility] 1.2.840.114 [id number] Univers 14:59:33 15:31:13 Visit Wondiful A Health 350.1.13.10 ity of [place] 4.2.7.2.686 Andrey as Professio [phone] [address] Office Building One 2019-04-23 2019-04-23 Orders Doctor CLOVIS 1.2.840.114 [id number] Univers 00:00:00 00:00:00 Only Unassigned, BUCKY 350.1.13.10 ity of [place] [facility] 4.2.7.2.686 Andrey as [id number] [address] 2019-04-23 2019-04-23 Letter [facility] 1.2.840.114 [id number] Univers 00:00:00 00:00:00 (Out) [facility] 350.1.13.10 itKatey 4.2.7.2.686 Andrey as Jael [id number] [address] Office Building One Results Test Description Test Time Test Comments Results Result Comments Source POCT TEST 2022-03-10 18:08:00 Test Item Value Reference Range Interpretation Comme nts POCT PREG (test code = 1605) Negative On board controls acceptable with C Line (test code = 3574) Yes POCT PREG LOT # (test code = 3575) POCT PREG TEST DATE (test code = 3576) [facility] [id number] 18:08:00 Test Item Value Reference Range Interpretation Comments POCT PREG (test code = 1605) Negative On board controls acceptable with C Yes Line (test code = 3574) POCT PREG LOT # (test code = 3575) POCT PREG TEST DATE (test 05/12/23 code = 3576) [facility]lamydia trachomatis and Neisseria gonorrhoeae rRNA panel - Specimen by DEBBIE with probe [id number] 00:00:00 Test Item Value Reference Range Interpretation Comments aptima combo 2 swab (CT) (test code = CT neg negative aptima combo 2 swab (CT)) aptima combo 2 swab (GC) (test code = GC neg negative aptima combo 2 swab (GC)) [facility] - Vaginal fluid by Probe with signal [id number] 00:00:00 Test Item Value Reference Range Interpretation Comments bacterial vaginosis (test code = bv neg negative bacterial vaginosis) [facility] (swhl) 2022-02-17 00:00:00 Test Item Value Reference Range Interpretation Comments trichomonas vaginalis swab (test trich neg negative code = trichomonas vaginalis swab) [facility]ap, LB + reflex to HR HPV if [id number] 00:00:00 Test Item Value Reference Range Interpretation Comments LMP date: (test code = 03/14/2018 LMP date:) Pap, liquid-based nilm nilm (test code = Pap, liquid-based) source (liquid-based cervical (which cytology): (test code includes endocervical) = source (liquid-based cytology):) [facility] MOLECULAR [id number] 01:50:28 Test Item Value Reference Range Interpretation Comments POCT Molecular FluA (test code = Negative Negative 42727-9) POCT Molecular FluB (test code = Negative Negative 17273-7) Lab Interpretation (test code = Normal 28298-5) [facility]FALLOPIAN TUBE,[id number] 07:35:00 RUN DATE: 11/21/18 [facility] PAGE 1 RUN TIME: 857 Specimen Inquiry RUN USER: INTERFACE -PATIENT: ASCENCION MAYER [facility] #: [id number] AGE/SX: 37/F ROOM: RE11/17/18REG DR: Sherron Jack : 80 BED: DIS: STATUS: [facility]ANIELA [facility] TLOC: SPEC #: [id number] RECD: 11/17/18 STATUS: NEDA AGUIRRE #: [id number] FREDI: 11/17/18- SUBM DR: Sherron Braden MD ENTERED: 11/17/18 SP TYPE: HERMINIO WATSON DR: ORDERED: LEVEL II SURGIC/2, FROZEN SECTION CODES: F79750 - ENDOMETRIUM, NO [id number] - FALLOPIAN TUBE PROCEDURES: LEVEL II SURGIC (Incomplete) FROZEN SECTION (Incomplete) TISSUES: FALLOPIAN TUBE, NOS - LEFT FALLOPIAN TUBE AND OVARY ENDOMETRIUM, NOS - ENDOMETRIAL CURETTINGS CLINICAL HISTORY 37 year old, left ovarian cyst, endometriosis, menorrhagia, IUD conception, cervical stenosis(kr) FINAL DIAGNOSIS Left ovary and fallopian tube, salpingo-oophorectomy: - endometriotic cyst of ovary - benign paratubal cyst Endometrium, curettage: - benign endometrium with hormone effect - endocervical and ectocervical epithelium, no significant pathologic alteration COMMENT: Permanent sections correlate with frozen section diagnosis. CPT code(s): 49086, 37294 x2 [facility] 11/20/18 GROSS DESCRIPTIONANATOMIC SOURCE OF TISSUE (per Requisition): 1. Left ovary and tube (frozen section on ovary) 2. Endometrial curettings Each specimen is labeled with the patient's name and medical record number. Specimen #1 received without fixative in a container, labeled with the patient's CONTINUED ON NEXT PAGE RUN DATE: 11/21/18 [facility] PAGE 2 RUN TIME: 857 Specimen Inquiry RUN USER: INTERFACE ------- -----SPEC #: 19:CF:[id number] PATIENT: ASCENCION MAYER #[id number] (Continued) GROSS DESCRIPTION (Continued) name is designated "left ovary and tube". The specimen consists of a 4.5 x 3.0 x 2.0 cm slightly enlarged ovary with an attached 4.5 cm in length and 0.7 in diameter fimbriated fallopian tube. The ovarian stroma displays a 3.0 x 2.0 x 1.5 cm unilocular cystic structure containing red-brown viscus blood. The cyst lining is sanchez-red, hemorrhagic and trabeculated. There are no identifiable excrescences. The cut surfaces of the cyst wall are sanchez, firm and slightly thickened. The outer surface of the ovary is pink-purple, hyperemic and slightly nodular. There is a 1.0 cm defect which coincides with the ovarian cyst. The remainder of the ovarian stroma is sanchez and firm with multiple yellow-orange, centrally hemorrhagic corporalutea. The fallopian tube is pink-purple and hyperemic with a pinpoint lumen. Section code: FS - forfrozen section diagnosis, A1 - additional liability claims representative sections for permanents. misael/wpd 11/17/18 @ 1433 Specimen #2 is designated "endometrial curettings" and consists of a 2.0 x 1.0 x 0.2 cm aggregate of multiple sanchez-pink, soft tissues admixed with blood-tinged mucoid material, submitted in toto as B1. misael/wpd 11/17/18 @ 1736 Signed Jackie Chiu MD 11/21/18 0735 END OF REPORT AG HEPATITIS B [id number] 11:05:00 Test Item Value Reference Range Interpretation Comments AG HEPATITIS B SURFACE (test code NONREACTIVE NONREACTIVE = HBSAG) IS CONSENT FORM SIGNED FOR HIV TESTING? B HEPATITIS C [id number] 11:05:00 Test Item Value Reference Range Interpretation Comments AB HEPATITIS C (test code = NONREACTIVE NONREACTIVE HCVAB) SIGNAL TO CUTOFF (test code = 0.12 <0.80 N CUTOFF) IS CONSENT FORM SIGNED FOR HIV TESTING? YA HIV 1 11:05:00 Test Item Value Reference Range Interpretation Comments AB HIV 1 2 (test NONREACTIVE NONREACTIVE [id number] 4th Gen HIV Ag/Ab Combo Screen IS CONSENT FORM SIGNED FOR HIV TESTING? YAG HEPATITIS B [id number] 10:37:00 Test Item Value Reference Range Interpretation Comments AG HEPATITIS B SURFACE (test code NONREACTIVE NONREACTIVE = HBSAG) IS CONSENT FORM SIGNED FOR HIV TESTING? YAB HEPATITIS C [id number] 10:37:00 Test Item Value Reference Range Interpretation Comments AB HEPATITIS C (test code = HCVAB) NONREACTIVE SIGNAL TO CUTOFF (test code = CUTOFF) <0.80 IS CONSENT FORM SIGNED FOR HIV TESTING? YAB HIV 1 10:37:00 Test Item Value Reference Range Interpretation Comments AB HIV 1 2 (test code = [id number]) NONREACTIVE IS CONSENT FORM SIGNED FOR HIV TESTING? ERICK [id number] 10:25:00 Test Item Value Reference Range Interpretation Comments PROTHROMBIN TIME PATIENT (test code 11.4 secs 10.4-12.4 N = PTP) THROMBOPLASTIN TIME [id number] 10:25:00 Test Item Value Reference Range Interpretation Comments THROMBOPLASTIN TIME PARTIAL (test 34.0 secs 22-38 N code = PTT) URINALYSIS [id number] 10:20:00 Test Item Value Reference Range Interpretation Comments UA COLOR (test code = COLU) ROBERT YELLOW A UA APPEARANCE (test code = CLOUDY CLEAR A APPU) UA GLUCOSE DIPSTICK (test code NEGATIVE NEG = DGLUU) UA BILIRUBIN DIPSTICK (test NEGATIVE NEG code = BILU) UA KETONE DIPSTICK (test code NEGATIVE NEG = KETU) UA SPECIFIC GRAVITY (test code 1.020 1.001-1.035 N = SGU) UA BLOOD DIPSTICK (test code = 1+ NEG A CHANDA) UA PH DIPSTICK (test code = 7.0 5-9 TAI) UA PROTEIN DIPSTICK (test code NEGATIVE NEG = PROU) UA UROBILINIOGEN DIPSTICK NEGATIVE mg/dL NEG (test code = URO) UA NITRITE DIPSTICK (test code NEG NEG = LEONIE) UA LEUKOCYTE ESTERASE DIPSTICK 1+ NEG A (test code = LEUU) UA WBC (test code = WBCU) 21-30 #/hpf NONE SEEN A UA RBC (test code = RBCU) 3-5 #/hpf NONE SEEN A UA EPITHELIAL CELLS (test code RARE #/HPF RARE-FEW = EPIU) UA BACTERIA (test code = BACU) FEW /HPF RARE-FEW UA MUCUS (test code = MUCU) RARE NONE SEEN UA YEAST (test code = YEASTU) FEW #/hpf NONE SEEN A URINE SAMPLE: CLEAN CATCHUR HCG [id number] 10:20:00 Test Item Value Reference Range Interpretation Comments UR HCG QUAL (test NEGATIVE 1. Very di lute urine code = HCGQLU) specimens, as indicated by a lowspecific g ravity, may not contain rep resentative levels ofhCG. 2 . False negative result s may occur when the levels of hCGare below the sensi tivity level of the test. If is still suspec fl[place], a first morningurine sp ecimen should be colle cted 48 hours later and tested. URINE SAMPLE: CLEAN CATCHCHEMISTRY 7 [id number] 10:09:00 Test Item Value Reference Range Interpretation Comments SODIUM (test code = NA) 142 mEq/L 135-145 N POTASSIUM (test code = K) 4.3 mEq/L 3.5-5.0 N CHLORIDE (test code = CL) 106 mEq/L 100-115 N CARBON DIOXIDE (test code = CO2) 31 mEq/L 22-31 N ANION GAP (test code = GAP) 9.40 10-20 L GLUCOSE (test code = GLU) 87 mg/dL 65-110 N BLOOD UREA NITROGEN (test code = 11 mg/dL 7-18 N BUN) GLOMERULAR FILTRATION RATE (test 112 ml/min >60 N code = GFR) CREATININE (test code = CREAT) 0.6 mg/dL 0.5-1.0 N CALCIUM (test code = CA) 9.3 mg/dL 8.4-10.2 N URINALYSIS [id number] 10:06:00 Test Item Value Reference Range Interpretation Comments UA COLOR (test code = COLU) YELLOW UA APPEARANCE (test code = APPU) CLEAR UA GLUCOSE DIPSTICK (test code = NEGATIVE DGLUU) UA BILIRUBIN DIPSTICK (test code = NEGATIVE BILU) UA KETONE DIPSTICK (test code = KETU) NEGATIVE UA SPECIFIC GRAVITY (test code = SGU) 1.001-1.035 UA BLOOD DIPSTICK (test code = CHANDA) NEGATIVE UA PH DIPSTICK (test code = TAI) 5-9 UA PROTEIN DIPSTICK (test code = PROU) NEGATIVE UA UROBILINIOGEN DIPSTICK (test code = mg/dL NEG URO) UA NITRITE DIPSTICK (test code = LEONIE) NEGATIVE UA LEUKOCYTE ESTERASE DIPSTICK (test NEG code = LEUU) UA WBC (test code = WBCU) #/hpf NONE SEEN UA EPITHELIAL CELLS (test code = EPIU) #/HPF RARE-FEW URINE SAMPLE: CLEAN CATCHUR HCG [id number] 10:06:00 Test Item Value Reference Range Interpretation Comments UR HCG QUAL (test NEGATIVE 1. Very di lute urine code = HCGQLU) specimens, as indicated by a lowspecific g ravity, may not contain rep resentative levels ofhCG. 2 . False negative result s may occur when the levels of hCGare below the sensi tivity level of the test. If is still suspec [place], a first morningurine sp ecimen should be colle cted 48 hours later and tested. URINE SAMPLE: CLEAN CATCHCBC W/AUTO [id number] 10:01:00 Test Item Value Reference Range Interpretation Comments WHITE BLOOD CELL (test code = WBC) 7.9 K/mm3 6.6-12.1 N RED BLOOD CELL (test code = RBC) 4.75 M/mm3 3.45-5.01 N HEMOGLOBIN (test code = HGB) 15.2 g/dL 10.7-13.9 H HEMATOCRIT (test code = HCT) 46.4 % 32.1-42.1 H MEAN CELL VOLUME (test code = MCV) 98 fL 84.1-94.8 H MEAN CELL HGB (test code = MCH) 32.0 pg 27-35 N MEAN CELL HGB CONCETRATION (test 32.8 gm/dL 32.2-34.1 N code = MCHC) RED CELL DISTRIBUTION WIDTH (test 12.5 % 12.4-16.5 N code = RDW) PLATELET COUNT (test code = PLT) 181 K/mm3 133-385 N IMMATURE PLATELET FRACTION (test 0.0 % 0.0-10.8 N code = IPF) MEAN PLATELET VOLUME (test code = 11.3 fl 9.1-12.7 N MPV) NEUTROPHIL % (test code = NT%) 59.9 % 56.5-79.4 N LYMPHOCYTE % (test code = LY%) 30.8 % 14.3-34.3 N MONOCYTE % (test code = MO%) 7.0 % 5.1-10.4 N EOSINOPHIL % (test code = EO%) 1.5 % 0.1-3.0 N BASOPHIL % (test code = BA%) 0.5 % 0.1-1.0 N NEUTROPHIL # (test code = NT#) 4.7 K/mm3 LYMPHOCYTE # (test code = LY#) 2.4 K/mm3 MONOCYTE # (test code = MO#) 0.6 K/mm3 EOSINOPHIL # (test code = EO#) 0.12 K/mm3 BASOPHIL # (test code = BA#) 0.0 K/mm3 RBC MORPHOLOGY REQUIRED (test code NORMAL NORMAL = RBCM) PLATELET MORPHOLOGY REQUIRED (test NORMAL NORMAL code = PLTMR) Notes Date/Time Note Provider Source 2018-11-17 14:05:00-00:00 [id number] [facility] [address], [place] [address] PATIENT NAME: ASCENCION MAYER ADMIT DATE: 9 ACCOUNT NO: [id number] ROOM NO: AGE: 38 SEX: F ADMITTING PHYSICIAN: ATTENDING PHYSICIAN: Sherron Jack MD OPERATION DATE: 11/17/2018 PREOPERATIVE DIAGNOSES: 1. Lower back pain. 2. Pelvic pain. 3. History of endometriosis. 4. Previous section x2. 5. Complex left adnexal cystic mass. 6. Mirena intrauterine device. 7. Cervical stenosis. POSTOPERATIVE DIAGNOSES: 1. Lower back pain. 2. Pelvic pain. 3. History of endometriosis. 4. Previous section x2. 5. Complex left adnexal cystic mass. 6. Mirena intrauterine device. 7. Cervical stenosis. PROCEDURES PERFORMED: 1. Mirena IUD removal. 2. Dilatation and curettage of the uterus and ce rvix. 3. Insertion of new Mirena. 4. Open 4-puncture laparoscopic left salpingo-oo phorectomy. 5. Laser vaporization of endometriosis. SURGEON: Sherron Jack MD SET UP MECHANIC STAMPING MACHINES: Adolfo. ANESTHESIA: General. ESTIMATED BLOOD LOSS: Less than 10 mL. INTRAVENOUS FLUIDS: 1400 mL. URINE OUTPUT: 75 mL. COMPLICATIONS: None. DISPOSITION: PACU and then planned to discharge home. PATIENT NAME: ASCENCION MAYER [id number] FINDINGS: Include the following; a pelvis comple tely free of endometriosis implants with the exception of the left pelvic sidewall where the left adnexal mass was adhesed to the sidewall as well as to a segment of colonic epiploica. The left adnexal mass was multicystic in nature. Uterus was normal. Right ovary was normal. Uterus sounded to 9 cm; howeve r, a significant amount of stenosis and resistance was noted at the upper e ndocervical canal during dilation and curettage. PROCEDURE IN DETAIL: As follows; Ascencion was lea en to the operating suite at [facility] where she was administ ered general anesthesia in standard fashion, placed in a modified dorsal li thotomy position using Ezequiel stirrups and prepped and draped in routine stand carmen sterile fashion for laparoscopy as well as D and C. After pe rforming a bimanual exam that revealed a midplane, mobile uterus, the weighted speculum was placed. Cervix was visualized, grasped with sin gle-tooth tenaculum. The old Mirena IUD was removed identified and disposed off. The cervix was then sequentially dilated to a 16-Upper Sorbian. The uterine sound was passed confirmi ng a sound length of 9 cm and upon insertion of the sharp curette, a l arge amount of resistance was noted at the upper endocervix/lower u terine segment. This was ultimately transected with confirmation of entrance into the fundal cavity with the curette. Minimal amount of tissue was achieve d despite multiple passes with a sharp curette. The new Mirena was then prepared and inserted to 7 c m. Arms were expanded and it was gently advanced to the fundus. The r elease mechanism was activated and the wand was released. Strings were trimmed at the l evel of the os and then the uterine manipulator was attached via a Essence latha juanita to the tenaculum. White catheter was placed into the urinary ravi dder and attached to the drape and the surgeon's gloves were changed and attention was turned to the abdomen. The patient was placed flat, infraumbilical area was infiltrated with local anesthesia, incised with a knife. The um bilical fascia was isolated, elevated, and entered with Gallagher scissors, resulting in imm ediate entrance into the peritoneal cavity, confirmed with a blun t sweep of the surgeon's index finger. Stay sutures were placed at 3 and 9 o'clock and the Hayden balloon trocar was inserted, attached to the stay sutures and ballo on was inflated. Low flow gas resulted in 3 mmHg readings and then hig h flow, achieved pneumoperitoneum. The patient was placed into steep Trendelenburg and additional port sites were placed, right mid quadrant, left mid quadrant, a nd suprapubic, all with site selection with the local anesthesia needle, infi ltration of the skin incision with a skin blade and insertion of the 12-mm bal loon trocar under direct visualization. The laparoscopic forceps were the n used to evaluate the pelvis with findings as mentioned above including a nor mal right ovary and a multicystic left ovary that initially ap peared adhesed to the pelvic sidewall; however, with some blunt tra ction was freed; however, on later inspection, there was identified an amount of red endometriosis im plants likely previously adhesing the ovary to the sidewall as we ll as to an area of colonic epiploica. The operative portion of the laparoscopy was then performed with visualization of the ureter in the sidewall isolation, elevati on, and desiccation of the infundibulopelvic ligament and then bryce ccation of the proximal left fallopian tube and proximal utero-ovar fabrice ligament. The Harmonic scalpel was then used to transect the fallopian tube and utero-ovarian li gament as well as across the infundibulopelvic and dissected to the level of the previously transected proximal ligaments, which resulted in amputation of the left tube and ovary. These were placed in the cul-de-sac. The Endopou ch was inserted through the 5-mm port. The left tube and ovary were placed i nto the Endopouch and the camera was swapped for a 5-m m camera through the right mid quadrant site and the bag was extracted through the umbilical incision and sent for frozen section. PATIENT NAME: ASCENCION MAYER [id number] The 10-mm scope was then rec onnected and attached to the laser and level of the laser utilization at 20 Ultr aPulse for approximately a total of 15 to 20 seconds was used to vaporize endometriosis along the lef t sidewall and in the area of the bowel epiploica. The bowel was also cauteriz ed due to a small amount of bleeding, felt to be far from the lumen without risk for involvement of the lumen of the colon. The entire pelvis was copiou sly irrigated and found to be hemostatic under visualization as well a s under low flow and the procedure was deemed complete. The patient was given T oradol. Pneumoperitoneum was released. She was placed flat trocars were removed and in cisions were closed, double layer closure at the umbilic us and single layer closure otherwise. Upon removal of the tenaculum, a small amount of bleeding was noted and therefore, a [id number] stitch was placed in the ectocer vix superiorly. The IUD was noted to continue to be in its usual danielle cement with strings present at the os. Dictated By: Sherron Jack MD WT: OP:FTeodoraCEE/JOSIE. Conf#: [id number]/DID#: [id number] Authenticated by Afshan Jack MD On 03:31:26 PM at 1531 PATIENT NAME: ASCENCION MAYER [id number] 2018-11-17 12:59:00-00:00 [facility] ([facility]) Full Op Note REPORT#:[id number] REPORT STATUS: Signed DATE:11/17/18 TIME: 1259 PATIENT: ASCENCION MAYER UNIT #: [id number] ROOM/BED: : 80 AGE: 37 SEX: F ATTEND: Sherron Dyson MD ADM AUTHOR: Sherron Jack MD * ALL edits or amendments must be made on the [employer] document * Operative Report ORM Surgeries: Surgery Date and Time: 11/17/2018 1200 Proposed Primary Procedure: LAPAROSCOPIC LEFT O OPHERECTOMY,VOE Proposed Secondary Procedure: HYSTEROSCOPY DIAG NOSTIC REMOVAL/REPLACEM Start date: 11/17/18 Start time: 1100 Pre-procedure diagnosis: pelvic pain, back pain, history of endometriosis , complex left ovarian cyst, MIRENA IUD, cervical stenosis Post-procedure diagnosis: same Procedures performed: IUD REMOVAL, D C, MIRENA IUD INSERTION, 4 PUNCT, OPEN L/S LSO, LVOE Technique/Procedure: SEE DICTATED NOTE Primary Surgeon: DEB Survey Chief(s): ADOLFO Anesthesia: general anesthesia Operative findings: MULTICYSTIC LEFT OVARY, ADHE SED TO THE LEFT SIDEWALL AND TO A SEGMENT OF COLONIC EPIPLOICA; FROZEN: ENDOMETRIOMA; 9CM UTERUS W/STENOTIC UPPER ENDOCX CANAL MINIMAL TISSUE ON D C Complications: none Estimated blood loss in ml's: LESS THAN 10 Specimens removed/altered: LEFT ADNEXA Implant(s): none Fluids: 1400 Urine output: 75 Approach: laparoscopic Disposition: plan to D/C home Counts: Sponge count: correct Instrument count: correct Needle count: correct Wound class: clean, clean-contaminated at 1304 RPT #:[id number] END OF REPORT 2018-11-17 10:57:00-00:[address] 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 Pain episodes become severe at times. Pt has no menstrual cycles due to MIRENA iud, however is a very difficult insertion due t o prev c/s deliveries. PMH: NONE PSH: c/s x2, L/S x3 for endo ALL: NKDA SOC: + TOBACCO OB: C/S X2 EXAM: VSS, BMI: 26 HEENT: NEG CHEST: CLEAR, CV: REG ABD: SOFT, WELL HEALED SCARS PELVIC: V/V: CLEAR CX: CLEAN, STENOTIC UT: 7CM, MOBILE ADN: SUPERVISOR SMOKE CONTROL BILAT A/P: PELVIC PAIN, LEFT OVARIAN COMPLEX C YST, HX ENDO, MIRENA IUD W/CX STENOSIS PLAN: DX L/S, LSO, LASER OF ENDO IF PRESENT IUD REPLACEMENT REC: at 1104 RPT #:[id number] END OF REPORT
[2022-08-13] MEDS ORDERED: Ringers Lactate 1,000 ML IV ONE (09:05)
[2022-08-13] MEDS ORDERED: ONDANSETRON 4 MG/2 ML VIAL ONE ×2 (09:05→12:53)
[2022-08-13 09:11] LABS: Absolute Lymphocytes (CBC) 2.4 K/uL (0.7-4.9); Hematocrit 45.7 % (36.0-45.0); Lymphocytes % 24.5 % (15.3-44.8); MCV 97.1 fL (80-100); MPV 9.2 fL (7.6-11.3)
[2022-08-13 09:14] LABS: Specific Gravity 1.007 (1.005-1.030); Specific Gravity 1.008 (1.005-1.030); Urine Bilirubin NEGATIVE (Negative); Urine Blood Negative (Negative); Urine Clarity Clear (Clear); Urine Color Light-Yellow (Yellow); Urine Glucose NEGATIVE (Negative); Urine Protein NEGATIVE (Negative); Urine Urobilinogen Normal (Normal); Urine pH 6.5 (5.0-7.0)
[2022-08-13] MEDS ORDERED: MORPHINE 4 MG/ML SYR ONE (09:14)
[2022-08-13 09:30] LABS: Albumin 3.8 g/dL (3.4-5.0); Bilirubin Total 0.4 mg/dL (0.2-1.0); Potassium 3.6 mEq/L (3.5-5.1); Protein, Total 7.1 g/dL (6.4-8.2)
--- NOTE | 2022-08-13 10:21 | RAD REPORT ---
EXAM DESCRIPTION: CT - Abdomen Pelvis W Contrast - 08/13/2022 10:01 am CLINICAL HISTORY: Abdominal pain COMPARISON: 1999 TECHNIQUE: Computed axial tomography of the abdomen pelvis was obtained. Seventy-five cc Isovue-300 was administered intravenously. Oral contrast was not requested which limits evaluation of bowel and appendix All CT scans are performed using dose optimization technique as appropriate and may include automated exposure control or mA/KV adjustment according to patient size. FINDINGS: The liver, spleen, pancreas, adrenal and kidneys appear unremarkable. There is no evidence of diverticulitis. Normal appendix No adnexal mass IMPRESSION: No acute abnormality is displayed.
[2022-08-13] MEDS ORDERED: KETOROLAC 30 MG/ML INJ ONE (10:26)
--- NOTE | 2022-08-13 12:26 | RAD REPORT ---
EXAM DESCRIPTION: US - Abdomen Exam Limited - 08/13/2022 10:51 am CLINICAL HISTORY: Abdominal pain. COMPARISON: 2008 FINDINGS: The gallbladder wall is not thickened. A gallstone is not seen. The biliary tree is normal caliber. IMPRESSION: Unremarkable gallbladder ultrasound.
--- NOTE | 2022-08-13 12:40 | EDPHYS ---
Physician Documentation [facility] Name: Kallie Johnson Age: 41 yrs Sex: Female : 1980 Arrival Date: 08/13/2022 Time: 08:43 Bed 2 Private MD: ED Physician Steve Nichols HPI: 08/13 08:51 This 41 yrs old Female presents to ER via Ambulatory with complaints of Abdominal Pain. [facility] 08:51 The patient presents with abdominal pain. Onset: The symptoms/episode began/occurred jmm this morning. The symptoms do not radiate. Associated signs and symptoms: Pertinent positives: vomiting. The symptoms are described as achy. Modifying factors: The symptoms are alleviated by nothing, the symptoms are aggravated by nothing. Historical: - Allergies: 08:55 No Known Allergies; hb - Home Meds: 08:55 None [Active]; hb - PMHx: 08:55 None; hb - PSHx: 08:55 None; hb - Immunization history:: Adult Immunizations up to date. - Social history:: Smoking status: Patient reports the use of cigarette tobacco products, smokes one-half pack cigarettes per day. ROS: 08:51 Constitutional: Negative for fever, chills, and weight loss, Cardiovascular: Negative jm for chest pain, palpitations, and edema, Respiratory: Negative for shortness of breath, cough, wheezing, and pleuritic chest pain. 08:51 Abdomen/GI: Positive for abdominal pain, nausea and vomiting. 08:51 All other systems are negative. Exam: 08:51 Constitutional: This is a well developed, well nourished patient who is awake, alert, jmm and in no acute distress. Head/Face: atraumatic. Eyes: EOMI, no conjunctival erythema appreciated ENT: Moist Mucus Membranes Neck: Trachea midline, Supple Chest/axilla: Normal chest wall appearance and motion. Cardiovascular: Regular rate and rhythm. No edema appreciated Respiratory: Normal respirations, no respiratory distress appreciated 08:51 Back: Normal ROM Skin: General appearance color normal MS/ Extremity: Moves all extremities, no obvious deformities appreciated, no edema noted to the lower extremities Neuro: Awake and alert Psych: Behavior is normal, Mood is normal, Patient is cooperative and pleasant 08:51 Abdomen/GI: Inspection: abdomen appears normal, Bowel sounds: normal, Palpation: soft, mild abdominal tenderness, in the epigastric area and right upper quadrant. Vital Signs: 08:54 BP 143 / 93; Pulse 77; Resp 16; Temp 97.4(O); Pulse Ox 100% on R/A; Weight 72.57 kg; hb Height 5 ft. 9 in. ; Pain 10/10; 09:03 BP 150 / 98; Pulse 83; Resp 18; Pulse Ox 99% on R/A; Pain 9/10; ld1 10:20 BP 128 / 88; Pulse 50; Resp 18; Pulse Ox 100% on R/A; Pain 8/10; ld1 11:21 BP 134 / 82; Pulse 82; Resp 18; Pulse Ox 99% on R/A; ld1 12:28 BP 114 / 80; Pulse 47; Resp 18; Pulse Ox 97% on R/A; ld1 08:54 Body Mass Index 23.63 (72.57 kg, 175.26 cm) hb 08:54 Pain Scale: Adult hb 09:03 Pain Scale: Adult ld1 10:20 Pain Scale: Adult ld1 MDM: 08:[address] [facility] 12:39 Data reviewed: vital signs, nurses notes, lab test result(s), radiologic studies, [facility] ultrasound. I considered the following discharge prescriptions or medication management in the emergency department Medications were administered in the Emergency Department. See MAR. Counseling: I had a detailed discussion with the patient and/or guardian regarding: the historical points, exam findings, and any diagnostic results supporting the discharge/admit diagnosis, lab results, radiology results, the need for outpatient follow up, to return to the emergency department if symptoms worsen or persist or if there are any questions or concerns that arise at home. 08/13 08:51 Order name: CBC with Diff; Complete Time: 09:31 [facility] 08/13 08:51 Order name: CMP; Complete Time: 09:31 [facility] 08/13 08:51 Order name: Lipase; Complete Time: 09:31 [facility] 08/13 08:51 Order name: Test, Urine; Complete Time: 09:31 [facility] 08/13 08:51 Order name: Urinalysis w/ reflexes; Complete Time: 09:31 [facility] 08/13 09:05 Order name: CT Abd/Pelvis - IV Contrast Only; Complete Time: 10:40 [facility] 08/13 10:15 Order name: US Abdomen Limited; Complete Time: 12:28 [facility] 08/13 08:51 Order name: IV Saline Lock; Complete Time: 09:03 [facility] 08/13 08:51 Order name: Labs collected and sent; Complete Time: 09:03 [facility] Administered Medications: 09:03 Drug: Lactated Ringers Solution IV 1000 ml Route: IV; Rate: 1000 bolus; Site: right ld1 antecubital; 09:03 Drug: Ondansetron IVP 4 mg Route: IVP; Site: right antecubital; ld1 09:10 Drug: morphine IVP or IV 4 mg Route: IVP; Infused Over: 4 mins; Site: right antecubital;ld1 10:20 Drug: Ketorolac IVP 30 mg Route: IVP; Site: right antecubital; ld1 12:49 Drug: Ondansetron IVP 4 mg Route: IVP; Site: right antecubital; ld1 Disposition: 13:56 Co-signature as Attending Physician, Steve Nichols MD I reviewed the patient's care rt provided by the Advanced Practice Provider and agree with the diagnosis and treatment plan. Disposition Summary: 08/13/22 12:39 Discharge Ordered Location: Home [facility] Condition: Stable [facility] Diagnosis - Vomiting [facility] - Epigastric pain [facility] Followup: [facility] - With: Private Physician - When: 2 - 3 days - Reason: Recheck today's complaints, Continuance of care, Re-evaluation by your physician Discharge Instructions: - Discharge Summary Sheet [facility] - Abdominal Pain, Adult [facility] - Clear Liquid Diet, Adult [facility] - Vomiting, Adult [facility] Forms: - Medication Reconciliation Form [facility] - Thank You Letter [facility] - Antibiotic Education [facility] - Prescription Opioid Use [facility] Prescriptions: - ondansetron 4 mg Oral Tablet,disintegrating - take 1 tablet by ORAL route every 4-6 hours As needed; 30 tablet; Refills: 0, [facility] Product Selection Permitted - Pepcid 20 mg Oral Tablet - take 1 tablet by ORAL route every 12 hours for 10 days; 20 tablet; Refills: 0, [facility] Product Selection Permitted - dicyclomine 20 mg Oral Tablet - take 1 tablet by ORAL route 4 times per day As needed; 30 tablet; Refills: 0, [facility] Product Selection Permitted Signatures: Dispatcher [employer] EDMS MickaKane lemus PA PA jmm Baxter, Heather, RN RN hb Caprice Diaz RN RN ld1 Steve Nichols MD MD rt
--- NOTE | 2022-08-13 12:40 | ER ---
Nurse's Notes [facility] Name: Kallie Johnson Age: 41 yrs Sex: Female : 1980 Arrival Date: 08/13/2022 Time: 08:43 Bed 2 Private MD: Diagnosis: Vomiting;Epigastric pain Presentation: 08/13 08:54 Chief complaint: Epigastric pain and nausea since 0200 today, vomit x 1. Coronavirus hb screen: At this time, the client does not indicate any symptoms associated with coronavirus-19. Ebola Screen: No symptoms or risks identified at this time. Initial Sepsis Screen: Does the patient meet any 2 criteria? No. Patient's initial sepsis screen is negative. Does the patient have a suspected source of infection? No. Patient's initial sepsis screen is negative. Risk Assessment: Do you want to hurt yourself or someone else? Patient reports no desire to harm self or others. Onset of symptoms was August 13, 2022. 08:54 Method Of Arrival: Ambulatory hb 08:54 Acuity: SALAZAR 3 hb Historical: - Allergies: 08:55 No Known Allergies; hb - Home Meds: 08:55 None [Active]; hb - PMHx: 08:55 None; hb - PSHx: 08:55 None; hb - Immunization history:: Adult Immunizations up to date. - Social history:: Smoking status: Patient reports the use of cigarette tobacco products, smokes one-half pack cigarettes per day. Screenin:03 [facility] ED Fall Risk Assessment (Adult) History of falling in the last 3 months, ld1 including since admission No falls in past 3 months (0 pts). Abuse screen: Denies threats or abuse. Denies injuries from another. Nutritional screening: No deficits noted. Tuberculosis screening: No symptoms or risk factors identified. Assessment: 09:03 General: Appears in no apparent distress. uncomfortable, Behavior is cooperative, ld1 anxious, crying, fussy. Pain: Complains of pain in epigastric area Pain does not radiate. Pain currently is 9 out of 10 on a pain scale. Quality of pain is described as throbbing. Neuro: Level of Consciousness is awake, alert, obeys commands, Oriented to person, place, time, situation. Cardiovascular: Capillary refill < 3 seconds Patient's skin is warm and dry. Respiratory: Airway is patent Respiratory effort is even, unlabored. GI: Abdomen is flat, non-distended, Bowel sounds present X 4 quads. Abd is soft Abdomen is tender to palpation in epigastric area Reports upper abdominal pain, nausea. : No signs and/or symptoms were reported regarding the genitourinary system. EENT: No signs and/or symptoms were reported regarding the EENT system. Derm: No signs and/or symptoms reported regarding the dermatologic system. Musculoskeletal: No signs and/or symptoms reported regarding the musculoskeletal system. 10:20 Reassessment: No changes from previously documented assessment. Patient and/or family ld1 updated on plan of care and expected duration. Pain level reassessed. Patient states symptoms have not improved. Vital Signs: 08:54 BP 143 / 93; Pulse 77; Resp 16; Temp 97.4(O); Pulse Ox 100% on R/A; Weight 72.57 kg; hb Height 5 ft. 9 in. ; Pain 10/10; 09:03 BP 150 / 98; Pulse 83; Resp 18; Pulse Ox 99% on R/A; Pain 9/10; ld1 10:20 BP 128 / 88; Pulse 50; Resp 18; Pulse Ox 100% on R/A; Pain 8/10; ld1 11:21 BP 134 / 82; Pulse 82; Resp 18; Pulse Ox 99% on R/A; ld1 12:28 BP 114 / 80; Pulse 47; Resp 18; Pulse Ox 97% on R/A; ld1 08:54 Body Mass Index 23.63 (72.57 kg, 175.26 cm) hb 08:54 Pain Scale: Adult hb 09:03 Pain Scale: Adult ld1 10:20 Pain Scale: Adult ld1 ED Course: 08:46 Patient arrived in ED. im 08:50 Kane Boyle PA is PHCP. jmm 08:50 Steve Nichols MD is Attending Physician. jmm 08:51 Caprice Diaz, BETH is Primary Nurse. ld1 08:55 Triage completed. hb 08:55 Arm band placed on. hb 09:03 Patient has correct armband on for positive identification. Placed in gown. Bed in low ld1 position. Call light in reach. Side rails up X2. Pulse ox on. NIBP on. Door closed. Noise minimized. Warm blanket given. 09:03 Urinalysis w/ reflexes Sent. ld1 09:03 Test, Urine Sent. ld1 09:03 Lipase Sent. ld1 09:03 CMP Sent. ld1 09:03 CBC with Diff Sent. ld1 09:03 No provider procedures requiring assistance completed. Inserted saline lock: 20 gauge ld1 in right antecubital area, using aseptic technique. Blood collected. 10:02 CT Abd/Pelvis - IV Contrast Only In Process Unspecified. EDMS 10:52 US Abdomen Limited In Process Unspecified. EDMS 12:50 IV discontinued, intact, bleeding controlled, No redness/swelling at site. ld1 Administered Medications: 09:03 Drug: Lactated Ringers Solution IV 1000 ml Route: IV; Rate: 1000 bolus; Site: right ld1 antecubital; 09:03 Drug: Ondansetron IVP 4 mg Route: IVP; Site: right antecubital; ld1 09:10 Drug: morphine IVP or IV 4 mg Route: IVP; Infused Over: 4 mins; Site: right antecubital;ld1 10:20 Drug: Ketorolac IVP 30 mg Route: IVP; Site: right antecubital; ld1 12:49 Drug: Ondansetron IVP 4 mg Route: IVP; Site: right antecubital; ld1 Medication: 09:03 VIS not applicable for this client. ld1 Outcome: 12:39 Discharge ordered by . kari 12:49 Discharged to home ambulatory, with family. ld1 12:49 Condition: stable 12:49 Discharge instructions given to patient, family, Instructed on discharge instructions, follow up and referral plans. medication usage, Demonstrated understanding of instructions, follow-up care, medications, Prescriptions given X 3. 12:50 Patient left the ED. ld1 Signatures: Dispatcher [employer] EDMS Kane Boyle PA PA jmm Baxter, Heather, RN RN Caprice Diaz RN RN ld1 Roxanne Akhtar
[2022-08-13 13:07] VITALS: TEMP 97.4
[2022-08-13 13:11] VITALS: BP 114/80; O2SAT 97
== END 2022-08-13 12:50 | disposition home or self-care (01) ==
LOC: ER 08:43
DX: R11.10 Vomiting, unspecified (principal); R10.13 Epigastric pain; F17.210 Nicotine dependence, cigarettes, uncomplicated
CPT/HCPCS: 85025; 36415; 81025; 81003; 83690; 80053; 74177; 76705; 96375; 96374; 99284; Q9967; J2405 ×2; J7120